=== PATIENT | male | born 1990 | race Caucasian/White ===

== ENCOUNTER 2021-11-02 04:30 | Emergency (ER) | payer OTHER ==
[2021-11-02] MEDS ORDERED: NAPROXEN500 MG PO (05:26)
[2021-11-02] MEDS ORDERED: PREDNISONE 20MG20 MG PO (05:26)
[2021-11-02] MEDS ORDERED: NORCO 5-325 TA1 EACH PO (05:26)
== END 2021-11-02 05:54 | disposition home or self-care (01) ==
LOC: FER 04:30
DX: J34.0 Abscess, furuncle and carbuncle of nose (principal)
CPT/HCPCS: 96372; J0696; J1100

== ENCOUNTER 2021-12-18 07:18 | Emergency (ER) | payer OTHER ==
[~2021-12-18 07:18] MED LIST: NAPROXEN500 MG PO; NORCO 5-325 TA1 EACH PO; PREDNISONE 20MG20 MG PO
[2021-12-18] MEDS ORDERED: NAPROXEN500 MG PO (08:42)
== END 2021-12-18 08:55 | disposition home or self-care (01) ==
LOC: FER 07:18
DX: S29.011A Strain of muscle and tendon of front wall of thorax, initial encounter (principal); X58.XXXA Exposure to other specified factors, initial encounter; Y93.72 Activity, wrestling; Z28.310 Unvaccinated for COVID-19
CPT/HCPCS: 71250